=== PATIENT | male | born 1985 | race Caucasian/White ===

== ENCOUNTER 2019-09-24 10:43 | Inpatient (IN) | payer OTHER, SELFPAY ==
[2019-09-24] VITALS (14 sets, daily range): BP systolic 112–149; BP diastolic 74–115; PULSE 104–132; RESP 16–28; TEMP 36.3–36.7; O2SAT 92–100; BMI 42.5; BMI 42.6; BMI 49.5
--- NOTE | 2019-09-24 11:02 | EKG12_ITS ---
Test Reason : DIZZINESS Blood Pressure : / mmHG Vent. Rate : 119 BPM Atrial Rate : 119 BPM P-R Int : 138 ms QRS Dur : 088 ms QT Int : 306 ms P-R-T Axes : 050 010 050 degrees QTc Int : 430 ms Sinus tachycardia Otherwise normal ECG Confirmed by BASILIO BARRETT ([id number]), makeup editor SUZAN HORNER ([id number]) on 09/27/2019 11:27:46 AM Referred By: Yonis Wilson Confirmed By:BASILIO BARRETT
--- NOTE | 2019-09-24 11:16 | ED.DCSUM_ITS ---
- ER Visit Summary Date of Service: 09/24/19 Chief Complaint: Nausea, dry mouth, urinary frequency, and increased thirst History of Present Illness: The patient is a 34 M who presents with nausea, dry mouth, urinary frequency, and polydipsia that has been getting worse over the past week. Patient states he has been feeling lightheaded and weak. Patient states nothing makes it better or worse. Patient states his mouth feels very dry. Patient states he has been vomiting as well. Patient states he has been unable to keep anything down. Patient admits to subjective chills but denies any fevers. Patient denies any history of diabetes. Physical Examination: Vital signs are stable except for tachycardia of 132. Patient is afebrile. Patient is in no acute distress. Oral mucosa is pink and dry. Neck is supple. Trachea is midline. There is no JVD. Heart was regular and tachycardic. Lungs are clear and equal bilateral. Abdomen is soft and diffusely tender. There is no rebound or guarding noted. Cranial nerves II through XII are intact. There are no focal motor or sensory deficits noted. Skin is warm and dry. Test Results: CBC showed a hemoglobin of 18.8 and hematocrit of 5.0. Basic metabolic profile showed glucose of 44, anion gap of 19, CO2 of 13, sodium 133, BUN of 19 and creatinine of 1.8. Serum ketones were moderate. Emergency Department Course and Treatment: Patient was given IV fluids. Patient was started on insulin drip. Case was discussed with the hospitalist. Patient will be admitted to the intensive care unit. Patient understood and was agreeable with the plan. All questions were answered. Disposition: Admit to hospital Impression: 1. Diabetic ketoacidosis 2. New onset diabetes This note was generated with FXTripation software. It may contain incorrect words, spelling, and punctuation that were not noted in review of the chart prior to signing ED Disposition - Plan for ED Patient: Disposition: Acute Care Hospital [facility] Diagnosis: Diabetic ketoacidosis, Diabetes mellitus, new onset [facility] [[facility] Provider[facility] -
[2019-09-24 11:20] LABS: Absolute Lymphocyte Count 1.78 X10^3/uL (0.83-4.51); Absolute Neutrophil Count 6.9 X10^3/uL (2.0-7.7); Eosinophil# 0.18 X10^3/uL; Eosinophils% 1.8 % (0-5); Lymphocyte # 1.78 X10^3/ul (4.0); Lymphocyte % 17.9 % (19-41); Mean Corp Hgb Conc 34.2 g/dL (32-36); Mean Corpuscular Hgb 29.4 pg (27.0-32.0); Mean Corpuscular Volume 86.1 fL (80-94); Mean Platelet Vol. 10.9 fl (6.2-12.0); Monocyte# 0.99 X10^3/uL; Monocyte% 9.9 % (0-10); NRBC Flagged by Analyzer 0 % (0-5); Neutrophil # 6.85 X10^3/uL (2.7-7.7); Neutrophil % 68.8 % (47-70); Platelet Count 265 K/mm3 (150-450); RBC Distribution Width CV 12.8 % (11.6-14.6); RBC Distribution Width SD 39.8 fl (35.1-43.9); Red Blood Count 6.39 M/mm3 (4.6-6.2)
[2019-09-24] MEDS: 0.9% Normal Saline 1,000 ML 1000 ML IV (11:24)
[2019-09-24 11:25] LABS: Differential Indicated SCAN CRITERIA MET; Hemoglobin 18.8 g/dL (13.0-16.5)
[2019-09-24 11:36] LABS: Anion Gap 19 (5-15); BUN 19 mg/dL (7-18); BUN/Creat Ratio 10.6 RATIO (10-20); Calcium,Total 9.3 mg/dL (8.5-10.1); Chloride 101 mmol/L (98-107); EST Glomerular Filtration Rate 46 mL/min (>60); Est Glom Filt Rate - Afr Amer 56 mL/min (>60); Estimated Creatinine Clearance 70.99 ml/min; Glucose 484 mg/dL (74-106); Potassium 4.6 mmol/L (3.5-5.1); Sodium Level 133 mmol/L (136-145)
[2019-09-24 11:52] LABS: Platelet Estimate ADEQUATE (ADEQ); Red Cell Morphology NORM C+C NORMAL (NORM C&C)
--- NOTE | 2019-09-24 12:35 | PCM.HP.STD ---
History of Present Illness Date of Admission: 09/24/19 Chief Complaint: Dry mouth and urinary frequency with polydipsia The patient is a 34 year old M who is morbidly obese presents with nausea, dry mouth, urinary frequency, and polydipsia that has been worsening over the last week. He presented because he started feeling lightheaded and weak as well today. He has had some episodes of vomiting and has not been able to keep any food or liquids down at home. He has been having intermittent vomiting for the last 2 months, but it seems to have picked up more this last week. He has not had any fevers, or recent illnesses. He does not have any sick contacts at home. In the ER he was found to have a blood sugar of 484, with a gap of 19 and moderate acetone level. He also appears to be significantly dehydrated with a hemoglobin of 18.8. He was given a liter fluid and was started on an insulin drip. Past Medical History Allergies Fish Containing Products Allergy (Verified 09/24/19 10:48) Swelling Home Medications: Ambulatory Orders Medication Instructions Recorded NK 09/24/19 Surgical History: no surgical history Smoking Status: Never smoker Tobacco Use: Chew Alcohol: None Drugs: None - *Family History Maternal History Items: - - He is unaware of any medical history and his mother Paternal History Items: COPD Review of Systems Constitutional: Reports: Chills. Denies: Fever, Weight Change HEENT: Denies: Head Aches, Sinus Congestion, Sinus Drainage Cardiovascular: Denies: Chest Pain, Palpitations Respiratory: Denies: Cough, Shortness of breath at rest, Sputum production Gastrointestinal: Reports: Nausea, Vomiting. Denies: Abdominal Pain Genitourinary: Denies: Dysuria Musculoskeletal: Denies: Joint Pain, Joint Tenderness Skin: Denies: Rash, Wounds Neurological: Denies: Numbness, Tingling, Focal weakness Psychiatric: Denies: Anxiety, Depression Endocrine: Reports: Polydipsia, Polyuria Hematologic/ Lymphatic: Denies: Easy Bruising, Easy Bleeding VTE Information - Inpt Only VTE Present on Admission: No Patient Problems: Active and Suspected Problems Diabetic ketoacidosis (Acute) Diabetes mellitus, new onset (Acute) - Physical Exam Vitals/I&O's: Vital Signs Temp Pulse Resp BP Pulse Ox 97.3 F L 132 H 20 H 147/98 H 94 09/24/19 10:45 09/24/19 10:45 09/24/19 10:45 09/24/19 10:45 09/24/19 10:45 Oxygen Delivery Method Room Air Weight: 350 lb Body Mass Index (BMI) 42.5 General: Alert, Oriented x3, Cooperative, No apparent distress HEENT: Atraumatic, PERRLA, EOMI, Normocephalic Oral: Dry Mucosa Neck: Supple, No JVD Lungs: Clear to auscultation, Normal air movement, No rhonchi, No wheeze, No rales, Diminished Cardiovascular: Regular Rhythm, Normal S1, Normal S2, No murmurs, Tachycardic Abdomen: Soft, Non Tender, Non-Distended, No Hepato-splenomegaly, Obese Extremities: No edema, Capillary Refill Less than 3 Seconds Skin: No rashes, No breakdown Neurological: Neuro grossly intact, Sensory exam intact to light touch and pain Psych/Mental Status: Normal Affect, Appropriate Laboratory Results 09/24/19 11:15: WBC 10.0, RBC 6.39 H, Hgb 18.8 H*, Hct 55.0 H, MCV 86.1, MCH 29.4, MCHC 34.2, RDW Std Deviation 39.8, RDW Coeff of Greg 12.8, Plt Count 265, MPV 10.9, Immature Gran % (Auto) 0.600, Neut % (Auto) 68.8, Lymph % (Auto) 17.9 L, [place] % (Auto) 9.9, Eos % (Auto) 1.8, Baso % (Auto) 1.0, Absolute Neuts (auto) 6.9, Absolute Lymphs (auto) 1.78, Nucleated RBC % 0, Diff Path Review February, Platelet Estimate ADEQUATE, RBC Morphology NORM C+C 09/24/19 11:15: Sodium 133 L, Potassium 4.6, Chloride 101, Carbon Dioxide 13.0 L, Anion Gap 19 H, BUN 19 H, Creatinine 1.80 H, Estim Creat Clear Calc 70.99, Est GFR (MDRD) Af Amer 56 L, Est GFR (MDRD) Non-Af 46 L, BUN/Creatinine Ratio 10.6, Glucose 484 H*, Calcium 9.3 09/24/19 11:15: Acetone Level MODERATE H Current Medications Dextrose (D50w Syringe) 0 gm IV X1 PRN; Protocol PRN Reason: Hypoglycemia Protocol Insulin Human Lispro 100 unit/ (Sodium Chloride) 100 mls @ 8 mls/hr IV .[id number] [facility]; Protocol Assessment/Plan All Active Problems Diabetic ketoacidosis (Acute) Diabetes mellitus, new onset (Acute) 1. DKA with new onset diabetes/morbid obesity -He is never been diagnosed with diabetes before -[facility] is a [facility] -We will continue with the DKA protocol, and will rehydrate him as well as continue with the insulin drip -We will monitor potassium -We will check an A1c, and if it is very elevated will likely discharge on insulin -Discussed with him the role of lifestyle modifications and weight loss and controlling his diabetes 2. Bipolar -He takes risperidone, but is not sure of the dosage he is unsure of any other medications that he might be taking -He just refilled them 2 days ago and has not had them from us this entire month -Once we verify what medications he does take can restart while he is here. DVT: Ambulation Code Visit Inpatient E&M: 12766 Init Hosp L2
[2019-09-24 12:43] LABS: Bacteria 0 SEEN /hpf (None Seen); Mucous, Urine 0 SEEN /hpf (<or=2+); White Blood Cells 0 SEEN /hpf (0-5)
[2019-09-24 12:51] LABS: Color, Urine Yellow (Yellow); Glucose, Dipstick 1000 mg/dl (Normal); Leukocyte Esterase-Dipstick Negative /ul (Negative); Nitrite-Dipstick Negative (Negative); Occult Blood-Urine 150 /ul (Negative); Protein-Dipstick 100 mg/dl (Negative); Specific Gravity, Urine 1.025 (1.002-1.030); Urine Bilirubin Dipstick Negative (Negative); Urine Clarity Clear (Clear); Urine Urobilinogen Normal (Normal)
[2019-09-24 12:57] LABS: Ketone-Dipstick 150 mg/dl (Negative)
[2019-09-24 12:59] LABS: Fine Granular Cast- Urine 0-5 SEEN /lpf (0-5); Red Blood Cells-Urine 0-5 SEEN /hpf (0-5); Squamous Epithelial Cells - UA 0-5 SEEN /hpf (0-5)
[2019-09-24 13:06] LABS: Bedside Glucose 485 mg/dL (70-110)
[2019-09-24 13:38] LABS: Hemoglobin A1c 10.4 % (4.2-6.3)
[2019-09-24] MEDS: 0.9% Normal Saline 1,000 ML 500 ML IV (13:58)
[2019-09-24 15:11] LABS: Bedside Glucose 413 mg/dL (70-110)
[2019-09-24 15:27] LABS: Anion Gap 18 (5-15); BUN 17 mg/dL (7-18); BUN/Creat Ratio 11.1 RATIO (10-20); Calcium,Total 8.4 mg/dL (8.5-10.1); Chloride 109 mmol/L (98-107); Creatinine, Serum 1.53 mg/dL (0.70-1.30); EST Glomerular Filtration Rate 56 mL/min (>60); Est Glom Filt Rate - Afr Amer 67 mL/min (>60); Estimated Creatinine Clearance 83.52 ml/min; Glucose 333 mg/dL (74-106); Potassium 3.9 mmol/L (3.5-5.1); Sodium Level 137 mmol/L (136-145)
[2019-09-24 15:56] LABS: Bedside Glucose 351 mg/dL (70-110)
[2019-09-24] MEDS: 0.9% Normal Saline 1,000 ML 250 ML IV (16:00)
[2019-09-24 16:05] LABS: Bedside Glucose 296 mg/dL (70-110)
[2019-09-24 17:00] LABS: Bedside Glucose 326 mg/dL (70-110)
[2019-09-24 18:05] LABS: Bedside Glucose 307 mg/dL (70-110)
[2019-09-24 18:51] LABS: Bedside Glucose 275 mg/dL (70-110)
[2019-09-24 19:15] LABS: Anion Gap 15 (5-15); BUN 17 mg/dL (7-18); BUN/Creat Ratio 10.2 RATIO (10-20); Calcium,Total 8.4 mg/dL (8.5-10.1); Chloride 110 mmol/L (98-107); Creatinine, Serum 1.66 mg/dL (0.70-1.30); EST Glomerular Filtration Rate 51 mL/min (>60); Est Glom Filt Rate - Afr Amer 61 mL/min (>60); Estimated Creatinine Clearance 76.98 ml/min; Glucose 280 mg/dL (74-106); Sodium Level 139 mmol/L (136-145)
[2019-09-24] MEDS: Dext 5%-0.45% NS 1,000 ML 150 ML IV (20:15)
[2019-09-24 21:10] LABS: Bedside Glucose 245 mg/dL (70-110)
[2019-09-24 21:10] LABS: Bedside Glucose 248 mg/dL (70-110)
[2019-09-24 23:48] LABS: Anion Gap 12 (5-15); BUN 16 mg/dL (7-18); BUN/Creat Ratio 10.4 RATIO (10-20); Calcium,Total 8.2 mg/dL (8.5-10.1); Chloride 110 mmol/L (98-107); Creatinine, Serum 1.54 mg/dL (0.70-1.30); EST Glomerular Filtration Rate 55 mL/min (>60); Est Glom Filt Rate - Afr Amer 67 mL/min (>60); Estimated Creatinine Clearance 82.98 ml/min; Glucose 278 mg/dL (74-106); Potassium 4.1 mmol/L (3.5-5.1); Sodium Level 138 mmol/L (136-145)
[2019-09-25] VITALS (15 sets, daily range): BP systolic 117–154; BP diastolic 54–98; PULSE 99–121; RESP 10–27; TEMP 36.2–36.9; O2SAT 92–100
[2019-09-25 00:01] LABS: Bedside Glucose 278 mg/dL (70-110)
[2019-09-25 00:01] LABS: Bedside Glucose 266 mg/dL (70-110)
[2019-09-25 00:05] LABS: Bedside Glucose 243 mg/dL (70-110)
[2019-09-25] MEDS: Insulin Lispro 100 UNIT/ML INSULN.PEN SC ×5 (02:45→22:05)
[2019-09-25 02:51] LABS: Bedside Glucose 252 mg/dL (70-110)
[2019-09-25 02:51] LABS: Bedside Glucose 283 mg/dL (70-110)
[2019-09-25 02:51] LABS: Bedside Glucose 323 mg/dL (70-110)
--- NOTE | 2019-09-25 03:04 | CPS ---
Pt. put on 2L NC for sleep-time therapeutic purposes
[2019-09-25 04:59] LABS: Absolute Lymphocyte Count 1.87 X10^3/uL (0.83-4.51); Absolute Neutrophil Count 4.6 X10^3/uL (2.0-7.7); Basophil# 0.08 X10^3/uL; Eosinophil# 0.37 X10^3/uL; Eosinophils% 4.6 % (0-5); Hematocrit 47.2 % (40-54); Lymphocyte # 1.87 X10^3/ul (4.0); Lymphocyte % 23.3 % (19-41); Mean Corp Hgb Conc 33.9 g/dL (32-36); Mean Corpuscular Hgb 29.3 pg (27.0-32.0); Mean Corpuscular Volume 86.4 fL (80-94); Mean Platelet Vol. 10.9 fl (6.2-12.0); Monocyte# 1.02 X10^3/uL; Monocyte% 12.7 % (0-10); NRBC Flagged by Analyzer 0 % (0-5); Neutrophil # 4.62 X10^3/uL (2.7-7.7); Neutrophil % 57.7 % (47-70); Platelet Count 233 K/mm3 (150-450); RBC Distribution Width CV 13.2 % (11.6-14.6); RBC Distribution Width SD 40.9 fl (35.1-43.9); Red Blood Count 5.46 M/mm3 (4.6-6.2)
[2019-09-25 05:12] LABS: Anion Gap 15 (5-15); BUN 15 mg/dL (7-18); BUN/Creat Ratio 10.1 RATIO (10-20); Calcium,Total 8.1 mg/dL (8.5-10.1); Chloride 106 mmol/L (98-107); Creatinine, Serum 1.49 mg/dL (0.70-1.30); EST Glomerular Filtration Rate 57 mL/min (>60); Est Glom Filt Rate - Afr Amer 69 mL/min (>60); Estimated Creatinine Clearance 85.76 ml/min; Glucose 318 mg/dL (74-106); Potassium 3.8 mmol/L (3.5-5.1); Sodium Level 137 mmol/L (136-145)
[2019-09-25] MEDS: Insulin Lispro 100 UNIT/ML INSULN.PEN 10 UNIT SC (08:24)
[2019-09-25 08:31] LABS: Bedside Glucose 319 mg/dL (70-110)
--- NOTE | 2019-09-25 08:38 | PN_ITS ---
Patient Problems: Active and Suspected Problems Diabetic ketoacidosis (Acute) Diabetes mellitus, new onset (Acute) Subjective: Feeling much better. No issues overnight Vitals/I&O's: Vital Signs Temp Pulse Resp BP Pulse Ox 97.8 F 107 H 24 H 154/83 H 98 09/25/19 07:00 09/25/19 08:00 09/25/19 08:00 09/25/19 08:00 09/25/19 08:00 Oxygen Flow Rate (L/min) 2 Oxygen Delivery Method Room Air Weight: 417 lb 1.833 oz Body Mass Index (BMI) 49.5 Finger Stick Blood Glucose 283 Intake and Output for Last 24 Hours 09/23/19 09/24/19 09/25/19 23:59 23:59 23:59 Intake Total 3046.09 / 3614.59 1240.94 / 1240.94 Output Total 400 / 400 Balance 2646.09 / 3214.59 1240.94 / 1240.94 General: Alert, Oriented x3, Cooperative, No apparent distress HEENT: Atraumatic, PERRLA, EOMI, Normocephalic Oral: Moist Mucosa Neck: Supple, No JVD Lungs: Clear to auscultation, Normal air movement, No rhonchi, No wheeze, No rales, Diminished Cardiovascular: Regular Rhythm, Normal S1, Normal S2, No murmurs, Tachycardic Abdomen: Soft, Non Tender, Non-Distended, No Hepato-splenomegaly, Obese Extremities: No edema, Capillary Refill Less than 3 Seconds Skin: No rashes, No breakdown Neurological: Neuro grossly intact, Sensory exam intact to light touch and pain Psych/Mental Status: Normal Affect, Appropriate Laboratory Results 09/24/19 11:15: WBC 10.0, RBC 6.39 H, Hgb 18.8 H*, Hct 55.0 H, MCV 86.1, MCH 29.4, MCHC 34.2, RDW Std Deviation 39.8, RDW Coeff of Greg 12.8, Plt Count 265, MPV 10.9, Immature Gran % (Auto) 0.600, Neut % (Auto) 68.8, Lymph % (Auto) 17.9 L, [place] % (Auto) 9.9, Eos % (Auto) 1.8, Baso % (Auto) 1.0, Absolute Neuts (auto) 6.9, Absolute Lymphs (auto) 1.78, Nucleated RBC % 0, Diff Path Review February, Platelet Estimate ADEQUATE, RBC Morphology NORM C+C 09/24/19 11:15: Sodium 133 L, Potassium 4.6, Chloride 101, Carbon Dioxide 13.0 L , Anion Gap 19 H, BUN 19 H, Creatinine 1.80 H, Estim Creat Clear Calc 70.99, Est GFR (MDRD) Af Amer 56 L, Est GFR (MDRD) Non-Af 46 L, BUN/Creatinine Ratio 10.6, Glucose 484 H*, Calcium 9.3 09/24/19 11:15: Acetone Level MODERATE H 09/24/19 11:15: Hemoglobin A1c 10.4 H 09/24/19 12:30: Urine Color Yellow, Urine Clarity Clear, Urine pH 5.0, Ur Specific [place] 1.025, Urine Protein 100 H, Urine Glucose (UA) 1000 H, Urine Ketones 150 H, Urine Occult Blood 150 H, Urine Nitrite Negative, Urine Bilirubin Negative, Urine Urobilinogen Normal, Ur Leukocyte Esterase Negative, Urine RBC 0-5 SEEN, Urine WBC 0 SEEN, Ur Squamous Epith Cells 0-5 SEEN, Urine Bacteria 0 SEEN, Fine Granular Casts 0-5 SEEN, Urine Mucus 0 SEEN 09/24/19 12:54: POC Glucose 485 H* 09/24/19 13:51: POC Glucose 413 H 09/24/19 15:02: POC Glucose 351 H 09/24/19 15:05: Sodium 137, Potassium 3.9, Chloride 109 H, Carbon Dioxide 10.0 L , Anion Gap 18 H, BUN 17, Creatinine 1.53 H, Estim Creat Clear Calc 83.52, Est GFR (MDRD) Af Amer 67, Est GFR (MDRD) Non-Af 56 L, BUN/Creatinine Ratio 11.1, Glucose 333 H, Calcium 8.4 L 09/24/19 15:55: POC Glucose 296 H 09/24/19 16:53: POC Glucose 326 H 09/24/19 17:53: POC Glucose 307 H 09/24/19 18:43: POC Glucose 275 H 09/24/19 18:45: Sodium 139, Potassium 4.0, Chloride 110 H, Carbon Dioxide 14.0 L , Anion Gap 15, BUN 17, Creatinine 1.66 H, Estim Creat Clear Calc 76.98, Est GFR (MDRD) Af Amer 61, Est GFR (MDRD) Non-Af 51 L, BUN/Creatinine Ratio 10.2, Glucose 280 H, Calcium 8.4 L 09/24/19 19:52: POC Glucose 248 H 09/24/19 20:59: POC Glucose 245 H 09/24/19 21:59: POC Glucose 278 H 09/24/19 23:00: Sodium 138, Potassium 4.1, Chloride 110 H, Carbon Dioxide 16.0 L , Anion Gap 12, BUN 16, Creatinine 1.54 H, Estim Creat Clear Calc 82.98, Est GFR (MDRD) Af Amer 67, Est GFR (MDRD) Non-Af 55 L, BUN/Creatinine Ratio 10.4, Glucose 278 H, Calcium 8.2 L 09/24/19 23:00: POC Glucose 266 H 09/24/19 23:59: POC Glucose 243 H 09/25/19 01:19: POC Glucose 252 H 09/25/19 02:04: POC Glucose 323 H 09/25/19 02:41: POC Glucose 283 H 09/25/19 04:50: Sodium 137, Potassium 3.8, Chloride 106, Carbon Dioxide 16.0 L, Anion Gap 15, BUN 15, Creatinine 1.49 H, Estim Creat Clear Calc 85.76, Est GFR (MDRD) Af Amer 69, Est GFR (MDRD) Non-Af 57 L, BUN/Creatinine Ratio 10.1, Glucose 318 H, Calcium 8.1 L 09/25/19 04:50: WBC 8.0, RBC 5.46, Hgb 16.0, Hct 47.2, MCV 86.4, MCH 29.3, MCHC 33.9, RDW Std Deviation 40.9, RDW Coeff of Greg 13.2, Plt Count 233, MPV 10.9, Immature Gran % (Auto) 0.700, Neut % (Auto) 57.7, Lymph % (Auto) 23.3, [place] % (Auto) 12.7 H, Eos % (Auto) 4.6, Baso % (Auto) 1.0, Absolute Neuts (auto) 4.6, Absolute Lymphs (auto) 1.87, Nucleated RBC % 0 09/25/19 07:47: POC Glucose 319 H Current Medications Dextrose (D50w Syringe) 0 gm IV X1 PRN; Protocol PRN Reason: Hypoglycemia Glucagon () 1 mg IM .X1 PRN PRN Reason: Hypoglycemia Insulin Glargine (Lantus (Bkc)) 30 units SC QHS [facility] Last Admin: 09/25/19 00:43 Dose: 30 u Documented by: Insulin Human Lispro (Humalog Kwikpen (Bk)) 0 unit SC ACHS & 3AM [facility]; Protocol Last Admin: 09/25/19 08:23 Dose: 6 u Documented by: Insulin Human Lispro (Humalog Kwikpen (Bkc)) 10 unit SC TIDAC [facility] Last Admin: 09/25/19 08:24 Dose: 10 units Documented by: Sodium Chloride () 10 - 40 ml IV UD PRN PRN Reason: SALINE FLUSH STROKE Vital Signs/Narrative: Vital Signs Temp Pulse Resp BP Pulse Ox 09/25/19 08:00 107 H 24 H 154/83 H 98 09/25/19 07:00 97.8 F 120 H 27 H 154/83 H 100 09/25/19 06:00 108 H 10 L 139/81 H 99 09/25/19 05:00 99 22 H 143/90 H 100 Medical Necessity - Tobacco Use Smoking Status: Never smoker Tobacco Use: Chew Assessment/Plan All Active Problems Diabetic ketoacidosis (Acute) Diabetes mellitus, new onset (Acute) 1. DKA with new onset diabetes/morbid obesity -He is never been diagnosed with diabetes before -He is a and [facility] -Gap is closed, c/w IVF -We will monitor potassium -A1c is 10, will continue with lantus 30U HS, Novolog TID WM, and SSI -Discussed with him the role of lifestyle modifications and weight loss and controlling his diabetes 2. Bipolar -He takes risperidone, but is not sure of the dosage he is unsure of any other medications that he might be taking -He just refilled them 2 days ago and has not had them from us this entire month -Once we verify what medications he does take can restart while he is here. DVT: Ambulation Code Visit Inpatient E&M: 91094 Subs Hosp L2
--- NOTE | 2019-09-25 10:59 | CASEMGMT ---
JESUS met w/pt and girlfriend in room in regard to prior level of care and discharge plan. PCP: none, [facility], has appt on October 03 Specialists: Sees counselor at [facility] Insurance: None, will be [facility] the [facility] Pharmacy: Will use [facility] LW/POA: JESUS assisted pt with completing LW/POA, pt put girlfriend Jennifer Grossman as POA. JESUS made copies, gave pt originals and copies and placed copies on chart. LNOK: Pt lives with girlfriend, has a mom in [place] Prior level of function/Living arrangements: Pt lives with girlfrientimoteo Rodriguez in a trailer with a few steps in. Pt is independent with all ADL's, has a license but does not drive, has no car. They use taxi vouchers to get places. [facility] for appt. Pt uses no DME, no HHC. Pt states is a disabled . JESUS spoke w/pt in regard to prior level of care, discharge plan. Pt did speak w/financial department about HCAP, did not speak w/them about Medicaid. JESUS gave pt multiple resources including [facility] [employer], [facility] assist, [facility] Mc[facility]on, Dental clinic information, 211, food bank information, hospital transport, [facility] Resource list, and prescription assistance programs. Pt goes to [facility] for bipolar and is prescribed medications for bipolar through them. He is satisfied with their services and does not want to make any changes in regard to mental health providers at this time. JESUS was able to use hospital assist for pt's medications, they will bring medications to the room. JESUS did explain to pt he can only use this service once per year, pt states understanding. JESUS let pt know they will bring the medications to the room. [facility], but is going on October 03 to get re-established. He will be able to follow up w/them for his diabetic medications after this. Pt's girlfriend has a glucometer pt can use until he goes to the [facility]. Girlfriend showed SW the meter, she has well over 50 strips and multiple lancets. JESUS did let pt know that [facility] has inexpensive meters as well if needed. Plan: Pt home tomorrow and using hospital assist for meds at discharge, pt [facility]. TOPHER Alcala
[2019-09-25] MEDS: 0.9% Normal Saline 1,000 ML 125 ML IV ×2 (11:13→18:13)
[2019-09-25] MEDS: Insulin Lispro 100 UNIT/ML INSULN.PEN 15 UNIT SC ×2 (12:20→16:30)
[2019-09-25 12:35] LABS: Bedside Glucose 476 mg/dL (70-110)
[2019-09-25 14:33] LABS: Pathologist Review Reviewed
[2019-09-25 16:41] LABS: Bedside Glucose 392 mg/dL (70-110)
[2019-09-25 22:21] LABS: Bedside Glucose 330 mg/dL (70-110)
[2019-09-26] VITALS (10 sets, daily range): BP systolic 116–133; BP diastolic 65–95; PULSE 82–138; RESP 16–24; TEMP 36.4–36.9; O2SAT 94–96
--- NOTE | 2019-09-26 02:05 | NURSING ---
Addendum entered by Salma Santoyo 09/26/19 02:06: EVENT OCCURRED @ 0035 Original Note: PT REQUESTED PAIN MEDICATION FOR UPPER-MID ABD PAIN. ORDER OBTAINED FROM DR UMANZOR AND WHEN THIS RN RETURNED TO PT'S ROOM, HE WAS SLEEPING. NOT AWOKEN FOR PAIN MEDICATION.
[2019-09-26] MEDS: 0.9% Normal Saline 1,000 ML 125 ML IV ×3 (02:13→18:39)
[2019-09-26] MEDS: Insulin Lispro 100 UNIT/ML INSULN.PEN SC ×5 (03:09→21:51)
[2019-09-26 03:31] LABS: Bedside Glucose 284 mg/dL (70-110)
[2019-09-26 06:19] LABS: Absolute Lymphocyte Count 1.54 X10^3/uL (0.83-4.51); Basophil# 0.06 X10^3/uL; Basophil% 1.1 % (0-1); Eosinophil# 0.24 X10^3/uL; Eosinophils% 4.3 % (0-5); Hematocrit 44.4 % (40-54); Hemoglobin 14.8 g/dL (13.0-16.5); Lymphocyte # 1.54 X10^3/ul (4.0); Lymphocyte % 27.5 % (19-41); Mean Corp Hgb Conc 33.3 g/dL (32-36); Mean Corpuscular Hgb 28.7 pg (27.0-32.0); Mean Corpuscular Volume 86.2 fL (80-94); Mean Platelet Vol. 11.4 fl (6.2-12.0); Monocyte# 0.72 X10^3/uL; Monocyte% 12.8 % (0-10); NRBC Flagged by Analyzer 0 % (0-5); Neutrophil # 3.01 X10^3/uL (2.7-7.7); Neutrophil % 53.6 % (47-70); Platelet Count 183 K/mm3 (150-450); RBC Distribution Width CV 13.2 % (11.6-14.6); RBC Distribution Width SD 41.1 fl (35.1-43.9); Red Blood Count 5.15 M/mm3 (4.6-6.2); White Blood Count 5.6 K/mm3 (4.4-11.0)
[2019-09-26 06:38] LABS: Anion Gap 13 (5-15); BUN 13 mg/dL (7-18); BUN/Creat Ratio 10.3 RATIO (10-20); Calcium,Total 8.1 mg/dL (8.5-10.1); Chloride 111 mmol/L (98-107); Creatinine, Serum 1.26 mg/dL (0.70-1.30); EST Glomerular Filtration Rate 70 mL/min (>60); Est Glom Filt Rate - Afr Amer 84 mL/min (>60); Estimated Creatinine Clearance 101.42 ml/min; Glucose 279 mg/dL (74-106); Potassium 3.8 mmol/L (3.5-5.1); Sodium Level 140 mmol/L (136-145)
[2019-09-26] MEDS: Insulin Lispro 100 UNIT/ML INSULN.PEN 15 UNIT SC (08:09)
--- NOTE | 2019-09-26 11:19 | PCM.PN.HOSP ---
Patient Problems: Active and Suspected Problems Diabetic ketoacidosis (Acute) Diabetes mellitus, new onset (Acute) Reason for Visit: c/O mild abdominal pain, generalized. Morbid obesity. patient blood sugar is still very high about 280-300 mg/dl. Pt felt not comfortable about taking insulin as new diagnosis of DM-1 WITH DKA Vitals/I&O's: Vital Signs Temp Pulse Resp BP Pulse Ox 97.5 F L 107 H 16 121/75 H 94 09/26/19 07:57 09/26/19 07:57 09/26/19 07:57 09/26/19 07:57 09/26/19 07:57 Oxygen Flow Rate (L/min) 2 Oxygen Delivery Method Room Air Weight: 420 lb 6.744 oz Body Mass Index (BMI) 49.5 Finger Stick Blood Glucose 283 Intake and Output for Last 24 Hours 09/24/19 09/25/19 09/26/19 23:59 23:59 23:59 Intake Total 3046.09 / 3614.59 2115.94 / 4515.94 4700 / 4700 Output Total 400 / 400 1600 / 1600 Balance 2646.09 / 3214.59 2115.94 / 2915.94 3100 / 3100 General: Alert, Oriented x3, Cooperative HEENT: Atraumatic, PERRLA, EOMI, Normocephalic Neck: Supple, No JVD, Negative Carotid Bruits Lungs: Clear to auscultation, No rhonchi, No wheeze, No rales, Diminished Cardiovascular: Regular rate, Regular Rhythm, Normal S1, Normal S2, No murmurs Abdomen: Bowel Sounds Present, Soft, Non Tender, Non-Distended Extremities: No edema, Capillary Refill Less than 3 Seconds Skin: No rashes, No breakdown Musculoskeletal: No Tenderness to Palpation of Joints or Extremities Neurological: Cranial nerves II-XII grossly intact, Deep Tendon Reflexes 2+/4 and Symmetrical, Neuro grossly intact Psych/Mental Status: Normal Affect, Appropriate Laboratory Results 09/24/19 11:15: Diff Path Review Reviewed 09/25/19 12:09: POC Glucose 476 H* 09/25/19 16:27: POC Glucose 392 H 09/25/19 22:01: POC Glucose 330 H 09/26/19 03:06: POC Glucose 284 H 09/26/19 05:32: WBC 5.6, RBC 5.15, Hgb 14.8, Hct 44.4, MCV 86.2, MCH 28.7, MCHC 33.3, RDW Std Deviation 41.1, RDW Coeff of Greg 13.2, Plt Count 183, MPV 11.4, Immature Gran % (Auto) 0.700, Neut % (Auto) 53.6, Lymph % (Auto) 27.5, [place] % (Auto) 12.8 H, Eos % (Auto) 4.3, Baso % (Auto) 1.1 H, Absolute Neuts (auto) 3.0, Absolute Lymphs (auto) 1.54, Nucleated RBC % 0 09/26/19 05:32: Sodium 140, Potassium 3.8, Chloride 111 H, Carbon Dioxide 16.0 L, Anion Gap 13, BUN 13, Creatinine 1.26, Estim Creat Clear Calc 101.42, Est GFR (MDRD) Af Amer 84, Est GFR (MDRD) Non-Af 70, BUN/Creatinine Ratio 10.3, Glucose 279 H, Calcium 8.1 L Current Medications Acetaminophen (Tylenol) 650 mg PO Q6H PRN PRN PRN Reason: Pain Score 1-10/10 Dextrose (D50w Syringe) 0 gm IV X1 PRN; Protocol PRN Reason: Hypoglycemia Glucagon () 1 mg IM .X1 PRN PRN Reason: Hypoglycemia Sodium Chloride () 1,000 mls @ 125 mls/hr IV .Q8H [facility] Last Admin: 09/26/19 10:48 Dose: 125 mls/hr Documented by: Insulin Human Lispro (Humalog Kwikpen (Bkc)) 0 unit SC ACHS & 3AM [facility]; Protocol Last Admin: 09/26/19 08:09 Dose: 6 u Documented by: Sodium Chloride () 10 - 40 ml IV UD PRN PRN Reason: SALINE FLUSH STROKE Vital Signs/Narrative: Vital Signs Temp Pulse Resp BP Pulse Ox 09/26/19 07:57 97.5 F L 107 H 16 121/75 H 94 Medical Necessity - Tobacco Use Smoking Status: Never smoker Tobacco Use: Chew Assessment/Plan All Active Problems Diabetic ketoacidosis (Acute) Diabetes mellitus, new onset (Acute) 34-year-old gentleman with history of morbid obesity was admitted with DKA with new diagnosis of diabetes mellitus type 1. 1. Diabetes mellitus type 1, new onset with DKA: DKA is resolved. A1c 10. Patient is still has high blood sugar, 284-300 today and yesterday was 300 to 400 mg percent. Lantus dose is increased to 40 units subcu at bedtime with extra dose of 20 units now. Humalog insulin increased to 25 units subcu units 3 times daily AC. Patient was educated about insulin he might need follow-up with production control analyst for evaluation of insulin pump for better glucose control. 2. Possible sleep apnea: Patient is morbid obese and has a snoring. He did not had sleep study done. Needs outpatient evaluation. 3. Bipolar disorder: Patient states he was on risperidone but not sure about the dosages. 4. DVT prophylaxis: Encourage ambulation. Since patient is morbid obese with BMI 51 he is moderate risk. Started on Lovenox 40 mg subcu daily Code Visit Inpatient E&M: 72904 Subs Hosp L2
--- NOTE | 2019-09-26 11:27 | PCM.DC ---
- Discharge Diagnoses Current Active Problems: Current Active and Chronic Problems Diabetic ketoacidosis (Acute) Diabetes mellitus, new onset (Acute) You will use the following diet at home:: Calorie/Carbohydrate Controlled (specify 1200, 1400, etc) - 1600 ADA diet Your food should be the consistency of: Regular Discharge Activity: May Not Drive - for about 1 week Call your doctor if you observe: Fever of 101 or Higher, Numbness or Tingling, Inability to urinate, Inability to have a bowel movement, Using more than one pad per hour, Shortness of breath, Dizziness, Fainting spells, Swelling in the ankles, Chest pain, Increased palpitations (irregular heartbeat) Additional Instructions: Need sleep study as outpatient. Possible sleep apnea Allergies/Adverse Reactions: Allergies Fish Containing Products Allergy (Verified 09/24/19 10:48) Swelling Medications to take at Discharge Insulin Lispro [Humalog KwikPen] 20 unit SUBCUT TIDCM #1 insuln.pen 09/26/19 Insulin Glargine [Lantus SoloStar Pen] 30 units SC QHS pen 09/27/19 Insulin Glargine [Lantus SoloStar Pen] 50 units SUBCUT DAILY #1 pen 09/27/19 Insulin Lispro [Humalog KwikPen] 35 unit SUBCUT TIDAC #1 insuln.pen 09/27/19 Insulin Lispro [Humalog KwikPen] See Protocol SC ACHS & 3AM insuln.pen 09/27/19 The following prescriptions were given: Insulin Lispro [Humalog KwikPen] 20 unit SUBCUT TIDCM #1 insuln.pen Prescription Printed Insulin Lispro [Humalog KwikPen] 35 unit SUBCUT TIDAC #1 insuln.pen Transmission Status: Pending to [facility] Insulin Glargine [Lantus SoloStar Pen] 50 units SUBCUT DAILY #1 pen Transmission Status: Pending to [facility] Orders to be completed after discharge: Glucometer Location: None Selected [facility] [[facility] Provider] - Please follow up with your Primary Care Physician in: in 2 weeks Test Results: Test results from this visit will be discussed in further detail at your follow-up appointment, if applicable. Please Follow Up With: Jaspreet Jennings MD When: Type 1 DM with DKA
[2019-09-26 12:21] LABS: Bedside Glucose 283 mg/dL (70-110)
[2019-09-26] MEDS: Enoxaparin 40 MG/0.4 ML Syringe SC (12:33)
[2019-09-26 12:36] LABS: Bedside Glucose 346 mg/dL (70-110)
[2019-09-26 16:41] LABS: Bedside Glucose 395 mg/dL (70-110)
[2019-09-26] MEDS: Insulin Lispro 100 UNIT/ML INSULN.PEN 25 UNIT SC (17:08)
[2019-09-26 22:05] LABS: Bedside Glucose 267 mg/dL (70-110)
[2019-09-27] MEDS: Insulin Lispro 100 UNIT/ML INSULN.PEN SC ×3 (02:14→11:10)
[2019-09-27] MEDS: 0.9% Normal Saline 1,000 ML 125 ML IV (02:15)
[2019-09-27 02:19] VITALS: BP 139/72; PULSE 117; RESP 18; TEMP 36.3; O2SAT 92
[2019-09-27 02:21] LABS: Bedside Glucose 350 mg/dL (70-110)
[2019-09-27 04:53] VITALS: PULSE 121
[2019-09-27 07:05] VITALS: PULSE 111
[2019-09-27 08:25] VITALS: BP 128/83; PULSE 108; RESP 17; TEMP 36.8; O2SAT 95
[2019-09-27] MEDS: Insulin Lispro 100 UNIT/ML INSULN.PEN 25 UNIT SC (08:26)
[2019-09-27 08:36] LABS: Bedside Glucose 292 mg/dL (70-110)
--- NOTE | 2019-09-27 10:30 | CASEMGMT ---
Patient's discharge insulins are the same, but the amount to take has changed. RN aware and corrected prescription labels. Dorina GALLOWAY CONSTRUCTION EQUIPMENT MECHANIC HELPER
--- NOTE | 2019-09-27 11:00 | DCINST_ITS ---
- Discharge Diagnoses Current Active Problems: Current Active and Chronic Problems Diabetic ketoacidosis (Acute) Diabetes mellitus, new onset (Acute) You will use the following diet at home:: Calorie/Carbohydrate Controlled (specify 1200, 1400, etc) - 1600 ADA diet Discharge Activity: May Not Drive Call your doctor if you observe: Fever of 101 or Higher, Numbness or Tingling, Change in Color, Inability to urinate, Inability to have a bowel movement, Shortness of breath, Dizziness, Fainting spells, Swelling in the ankles, Chest pain, Prolonged hiccoughing, Increased palpitations (irregular heartbeat), Uncontrolled pain Additional Instructions: Outpatient sleep study for patient is snoring and possible obstructive sleep apnea Allergies/Adverse Reactions: Allergies Fish Containing Products Allergy (Verified 09/24/19 10:48) Swelling Medications to take at Discharge Insulin Glargine [Lantus SoloStar Pen] 30 units SC QHS pen 09/27/19 Insulin Glargine [Lantus SoloStar Pen] 50 units SUBCUT DAILY #1 pen 09/27/19 Insulin Lispro [Humalog KwikPen] 35 unit SUBCUT TIDAC #1 insuln.pen 09/27/19 Insulin Lispro [Humalog KwikPen] See Protocol SC ACHS & 3AM insuln.pen 09/27/19 The following prescriptions were given: Insulin Lispro [Humalog KwikPen] 35 unit SUBCUT TIDAC #1 insuln.pen Transmission Status: Pending to [facility] Insulin Glargine [Lantus SoloStar Pen] 50 units SUBCUT DAILY #1 pen Transmission Status: Pending to [facility] Orders to be completed after discharge: Glucometer Location: None Selected [facility] Physician[facility] [Primary Care Provider] - Please follow up with your Primary Care Physician in: in 2 week Test Results: Test results from this visit will be discussed in further detail at your follow- up appointment, if applicable. Please Follow Up With: Jaspreet Jennings MD When: for type 1 DM with DKA
--- NOTE | 2019-09-27 11:03 | PCM.DC.SUM ---
Discharge Date and Diagnosis Date of Admission: 09/24/19 Date of Discharge: 09/27/19 - Primary Discharge Diagnosis Active and Suspected Problems Diabetic ketoacidosis (Acute) Diabetes mellitus, new onset (Acute); type I Hospital Course and Treatment Summary of Care Provided: The patient is a 34-year-old gentleman with history of morbid obesity was admitted with DKA with new diagnosis of diabetes mellitus type 1. 1. Diabetes mellitus type 1, new onset with DKA: DKA is resolved. A1c 10. Patient is still has high blood sugar, 284-300 today and yesterday was 300 to 400 mg percent. Lantus dose is increased to 40 units subcu at bedtime with extra dose of 20 units now. Humalog insulin increased to 25 units subcu units 3 times daily AC. 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 09/27: Patient Humalog was increased to 35 units subcutaneous 3 times daily. Lantus changed to 50 units subcutaneous daily and 30 units at night. Needs further endocrinology follow-up to adjust the dose of insulin. I think patient will be better served on insulin pump. 2. Possible sleep apnea: Patient is morbid obese and has a snoring. He did not had sleep study done. Needs outpatient evaluation. 09/27: Patient was educated about weight loss and follow-up for sleep study. 3. Bipolar disorder: Patient states he was on risperidone but not sure about the dosages. 4. DVT prophylaxis: Encourage ambulation. Since patient is morbid obese with BMI 51 he is moderate risk. Started on Lovenox 40 mg subcu daily Discharge medication reconciliation done. Discharge follow-up instructions completed. Discharge process discussed with the patient and his and all questions were answered to patient's satisfaction. Total time spent, exact 35 minutes on discharge meds reconciliation, examination, review of imaging and blood test and discussion with the patient on follow-up instructions. Subjective: Seen and examined. Patient is confident about insulin subcutaneous injection. Patient wants to go home. - Physical Exam Vitals/I&O's: Vital Signs Temp Pulse Resp BP Pulse Ox 98.3 F 108 H 17 128/83 H 95 09/27/19 08:25 09/27/19 08:25 09/27/19 08:25 09/27/19 08:25 09/27/19 08:25 Oxygen Flow Rate (L/min) 2 Oxygen Delivery Method Room Air Weight: 420 lb 6.744 oz Body Mass Index (BMI) 49.5 Finger Stick Blood Glucose 283 Intake and Output for Last 24 Hours 09/25/19 09/26/19 09/27/19 23:59 23:59 23:59 Intake Total 2115.94 / 4515.94 6540 / 6540 1902.08 / 190.08 Output Total 1600 / 1600 Balance 2115.94 / 2915.94 4940 / 4940 1902.08 / 190.08 General: Alert, Oriented x3, Cooperative HEENT: Atraumatic, PERRLA, EOMI, Normocephalic Neck: Supple, No JVD, Negative Carotid Bruits Lungs: Clear to auscultation, Normal air movement Cardiovascular: Regular rate, No murmurs Abdomen: Bowel Sounds Present, Soft, Non Tender, Non-Distended Extremities: No edema, Capillary Refill Less than 3 Seconds Skin: No rashes, No breakdown Musculoskeletal: No Tenderness to Palpation of Joints or Extremities Neurological: Cranial nerves II-XII grossly intact, Deep Tendon Reflexes 2+/4 and Symmetrical, Neuro grossly intact Psych/Mental Status: Normal Affect, Appropriate Laboratory Results 09/26/19 07:54: POC Glucose 283 H 09/26/19 12:18: POC Glucose 346 H 09/26/19 16:36: POC Glucose 395 H 09/26/19 21:51: POC Glucose 267 H 09/27/19 02:13: POC Glucose 350 H 09/27/19 08:24: POC Glucose 292 H Current Medications Acetaminophen (Tylenol) 650 mg PO Q6H PRN PRN PRN Reason: Pain Score 1-10/10 Dextrose (D50w Syringe) 0 gm IV X1 PRN; Protocol PRN Reason: Hypoglycemia Enoxaparin Sodium (Lovenox) 40 mg SC DAILY [facility] Last Admin: 09/27/19 08:26 Dose: Not Given Documented by: Glucagon () 1 mg IM .X1 PRN PRN Reason: Hypoglycemia Sodium Chloride () 1,000 mls @ 125 mls/hr IV .Q8H [facility] Last Infusion: 09/27/19 09:52 Dose: Infused Documented by: Insulin Glargine (Lantus (Bkc)) 50 units SC QHS [facility] Last Admin: 09/26/19 21:52 Dose: 50 u Documented by: Insulin Glargine (Lantus (Bkc)) 30 units SC DAILY [facility] Last Admin: 09/27/19 09:48 Dose: 30 units Documented by: Insulin Human Lispro (Humalog Kwikpen (Bk)) 0 unit SC ACHS & 3AM GERARDO; Protocol Last Admin: 09/27/19 08:25 Dose: 6 u Documented by: Insulin Human Lispro (Humalog Kwikpen (Bk)) 35 unit SC TIDAC [facility] Sodium Chloride () 10 - 40 ml IV UD PRN PRN Reason: SALINE FLUSH Discharge Activity: May Not Drive Call your doctor if you observe: Fever of 101 or Higher, Numbness or Tingling, Change in Color, Inability to urinate, Inability to have a bowel movement, Shortness of breath, Dizziness, Fainting spells, Swelling in the ankles, Chest pain, Prolonged hiccoughing, Increased palpitations (irregular heartbeat), Uncontrolled pain Home Medications: Medications to take at Discharge Insulin Glargine [Lantus SoloStar Pen] 30 units SUBCUT QHS pen 09/27/19 Insulin Glargine [Lantus SoloStar Pen] 50 units SUBCUT DAILY #1 pen 09/27/19 Insulin Lispro [Humalog KwikPen] 35 unit SUBCUT TIDAC #1 insuln.pen 09/27/19 Insulin Lispro [Humalog KwikPen] See Protocol SUBCUT ACHS & 3AM insuln.pen 09/27/19 Following Prescrptions Were Given to Patient: Insulin Lispro [Humalog KwikPen] 35 unit SUBCUT TIDAC #1 insuln.pen Transmission Status: Received by [facility] Insulin Glargine [Lantus SoloStar Pen] 50 units SUBCUT DAILY #1 pen Transmission Status: Received by [facility] Other Amb Orders: Glucometer Location: None Selected [facility] Care Physician[place] [facility] [Primary Care Provider] - Please follow up with your Primary Care Physician in: in 2 week Please Follow Up With: Jaspreet Jennings MD When: for type 1 DM with DKA Medical Necessity - Tobacco Use Smoking Status: Never smoker Tobacco Use: Chew Meaningful Use Info Meaningful Use Diagnoses (Choose all that apply): None applicable Code Visit Inpatient E&M: 55490 Disch Hosp
[2019-09-27] MEDS: Insulin Lispro 100 UNIT/ML INSULN.PEN 35 UNIT SC (11:11)
[2019-09-27 11:20] LABS: Bedside Glucose 232 mg/dL (70-110)
== END 2019-09-27 12:15 | disposition home or self-care (01) | DRG 638 ==
LOC: ED 12:15 → ICU 09-25 07:06 → PCU 09-25 08:57
PROVIDERS: Admitting Provider Family Medicine; Emergency Provider Emergency Medicine; Referring Provider Family Medicine; Visit Provider Internal Medicine
DX: E10.10 Type 1 diabetes mellitus with ketoacidosis without coma (principal); Z68.42 Body mass index [BMI] 45.0-49.9, adult; E66.01 Morbid (severe) obesity due to excess calories; F31.9 Bipolar disorder, unspecified
CPT/HCPCS: 36415; 80048; 81001; 82009; 82962; 83036; 85025; 93005; 97161; 97165; 97802; 99285; J7030; A4216; J7799

== ENCOUNTER 2020-10-08 17:56 | Emergency (ER) | payer OTHER, SELFPAY ==
[2020-03-17 13:22] VITALS: BMI 42.5
[2020-10-08 17:57] VITALS: BP 158/115; PULSE 116; PULSE 121; RESP 20; TEMP 36.4; O2SAT 96; BMI 46.5
--- NOTE | 2020-10-08 18:17 | ED.VIS.GEN ---
History of Present Illness Chief Complaint: Dental Informant: Patient Narrative: 35-year-old male with history of insulin-dependent diabetes presents with 1 week of right-sided dental pain. He states that the whole right side of his lower mouth. He denies any trauma. He denies any difficulty breathing or swallowing. Patient is not had a fever, chills. Patient has no facial swelling. He states he tried to call the dentist and they told him it would be 4 weeks to get into the office. Past Medical History - Allergies and Home Meds Allergies/Adverse Reactions: Allergies Fish Containing Products Allergy (Verified 09/24/19 10:48) Swelling Primary Care Physician: [place] [Primary Care Provider] - Prior records reviewed: Yes Past Medical History: - - Insulin-dependent diabetes Surgical History: no surgical history Lives: Spouse/ Significant Other Smoking Status: Never smoker Alcohol: None Drugs: None - Family History Maternal Family History: Reports: - - He is unaware of any medical history and his mother Paternal Family History: Reports: COPD Review of Systems General: Denies: Chills, Fever, Sweats Eyes: Denies: Visual changes - bilaterally, Diplopia ENT: Reports: - - Right mandibular dental pain. Denies: Rhinorrhea, Sore throat Cardiovascular: Denies: Chest pain, Palpitations Respiratory: Denies: Dyspnea, Cough, Dyspnea on exertion Gastrointestinal: Denies: Abdominal pain, Nausea, Vomiting, Diarrhea, Melena, Hematochezia Musculoskeletal: Denies: Back pain, Extremity Pain Skin: Denies: Rash, Wounds Neurological: Denies: Headache, Weakness, Numbness Physical Exam Vital Signs/Narrative: Vital Signs Temp Pulse Resp BP Pulse Ox 10/08/20 17:57 97.5 F L 116 H 20 H 158/115 H 96 General: Obese, No Acute Distress Head: Normocephalic, Atraumatic Eyes: Perrl, EOMI ENT: Moist mucous membranes, - - Dental caries involving the right mandibular teeth approximately 27-32. No facial swelling. There is percussion tenderness over these teeth. No sublingual swelling.. Negative for: No rhinorrhea Neck: Supple, Nontender, No lymphadenopathy Cardiovascular: Regular rate, Regular rhythm Respiratory: No distress, CTA bilaterally Abdomen: Soft, Nontender Skin: Normal color, No rash Neurological: Alert, Oriented x3 Psychological: Normal affect, Normal Mood Diagnostic/Tx/Re-eval - Medical Decision Making Patient presents with dental pain and has found to have multiple dental caries on the right mandibular teeth. He has made appointment for dentist but he is weeks away. I will place him on Augmentin for home. Patient was also given #6 Percocet for home as well as Naprosyn. He is to use the Percocet for breakthrough pain. Impression: 1. Dental caries 2. Dental infection ED Disposition - Plan for ED Patient: Disposition: Home or Assisted Living Instructions: ED Dental Cavity [place]errals[place] [facility] [Primary Care Provider] -
[2020-10-08] MEDS: oxyCODONE 5 MG Tablet PO (18:26)
[2020-10-08] MEDS: Amox/Clavulanate 875 MG Tablet PO (18:26)
== END 2020-10-08 18:39 | disposition home or self-care (01) ==
LOC: ED 18:33
PROVIDERS: Emergency Provider Student in an Organized Health Care Education/Training Program
DX: K02.9 Dental caries, unspecified (principal); K04.7 Periapical abscess without sinus; E10.9 Type 1 diabetes mellitus without complications; Z79.4 Long term (current) use of insulin
CPT/HCPCS: 99283

== ENCOUNTER 2020-10-29 13:51 | Emergency (ER) | payer OTHER, SELFPAY ==
[2020-10-29 13:52] VITALS: BP 160/100; PULSE 114; RESP 16; TEMP 36.3; O2SAT 97; BMI 43.7
--- NOTE | 2020-10-29 14:00 | ED.DCSUM_ITS ---
History of Present Illness Chief Complaint: Dental Informant: Patient Onset: Weeks - 3 Context: Gradual Onset Timing: Continuous Quality: throbbing Location: right mandibular teeth Current Severity: Severe Maximum Severity: Severe Worsened by: eating Relieved by: - - oxycodone, but not NSAIDs Associated Symptoms: - - no new sx except now feels like it is involving his right maxillary 2nd molar Narrative: Patient was seen here 3 weeks ago for similar dental pain, he was supposed to receive an antibiotic but did not. He only had prescriptions for oxycodone and Naprosyn at the pharmacy when he got there. He has tried to get into see denisse arguello, but has not been able to get an appointment this month. He states pain is getting worse. Denies any fevers, bleeding, swelling, foul taste or drainage but now has an additional tooth that feels affected. - Past Medical History (1) Insulin dependent diabetes mellitus Status: Chronic Past Medical History - Allergies and Home Meds Allergies/Adverse Reactions: Allergies Fish Containing Products Allergy (Verified 10/29/20 13:57) Swelling Primary Care Physician: [place] [Primary Care Provider] - Surgical History: no surgical history Smoking Status: Never smoker - Family History Maternal Family History: Reports: - - He is unaware of any medical history and his mother Paternal Family History: Reports: COPD Review of Systems General: Denies: Chills, Fever, Sweats Eyes: Denies: Visual changes - bilaterally, Diplopia ENT: Reports: - - Dental pain. See HPI.. Denies: Rhinorrhea, Sore throat Cardiovascular: Denies: Chest pain, Palpitations Respiratory: Denies: Dyspnea, Cough Gastrointestinal: Denies: Nausea, Vomiting Musculoskeletal: Denies: Swelling, Extremity Pain Skin: Denies: Rash, Wounds Physical Exam Vital Signs/Narrative: Vital Signs Temp Pulse Resp BP Pulse Ox 10/29/20 13:52 97.3 F L 114 H 16 160/100 H 97 Inital Vital Signs reviewed: Yes General: Well nourished, Well developed, Obese, - - Well-appearing no distress Head: Normocephalic, Atraumatic ENT: Moist mucous membranes, No rhinorrhea Mouth/Throat: Tenderness on tooth percussion - Throughout right mandibular m olars, cuspids and bicuspids with evidence of gingival inflammation nearby, no abscess. Also tooth #2 appears to have a small carry and is tender to percussion. No abscess. No trismus.. Negative for: Dental abscess, Trismus Neck: Supple, No lymphadenopathy, Nontender. Negative for: Anterior submandibular lymphadenopathy, Posterior submandibular lymphadenopathy Skin: Normal color, No rash, No Trauma Neurological: Alert, Oriented x3, Cranial nerves II-XII grossly intact, Normal Strength, Normal Sensation, - - Normal speech Psychological: Normal affect, Normal Mood Diagnostic/Tx/Re-eval - Medical Decision Making I did check an OARRS report, the prescription for oxycodone that he received here 3 weeks ago was the only 1 in his prior to your report. The physician did apparently intend to prescribe Augmentin, but it does not appear that it was prescribed. I think amoxicillin is adequate, gave him an initial dose here, prescription for that and a little more Percocet given his pain. He was also given a dental resource list. ED Disposition - Plan for ED Patient: Disposition: Home or Assisted Living Diagnosis: Infected dental caries, Odontalgia Instructions: ED Dental Pain Prescriptions: Amoxicillin 500 mg PO TID #30 tab Transmission Status: Pending to [facility] Oxycodone HCl/Acetaminophen [Percocet 5/325] 1 tablet PO Q6H PRN PRN 2 Days #10 tablet PRN Reason: Pain Transmission Status: Sent to [facility] [place]errals: [facility] [Primary Care Provider] - Dentist,Your [STAFF PHYSICIAN] - As soon as possible (see attached dental resource list as needed)
[2020-10-29] MEDS: AMOXICILLIN 500 MG CAPSULE PO (14:14)
== END 2020-10-29 14:16 | disposition home or self-care (01) ==
LOC: ED 14:15
PROVIDERS: Emergency Provider Emergency Medicine
DX: K02.9 Dental caries, unspecified (principal); K04.7 Periapical abscess without sinus; E10.9 Type 1 diabetes mellitus without complications; Z79.4 Long term (current) use of insulin
CPT/HCPCS: 99283

== ENCOUNTER 2020-10-31 04:56 | Emergency (ER) | payer OTHER, SELFPAY ==
[2020-10-31 04:58] VITALS: BP 170/114; PULSE 129; RESP 18; TEMP 36.6; O2SAT 99; BMI 47.7
[2020-10-31 05:01] VITALS: BP 170/114; PULSE 129; RESP 18; TEMP 36.6; O2SAT 99
--- NOTE | 2020-10-31 05:13 | ED.VIS.GEN ---
History of Present Illness Chief Complaint: Dental Informant: Patient Narrative: Presents with right-sided dental pain. He was seen here couple days ago and given amoxicillin and Percocet for which he has been taking. He continues to have persistent pain worse tonight. Difficult sleeping. He had difficulty eating secondary to pain in this area therefore he just been drinking water. Blood sugars have been under control as he is not been eating much per patient. He has an appointment with the dentist on Monday. - Past Medical History (1) Diabetes mellitus, new onset Status: Acute (2) Diabetic ketoacidosis Status: Acute (3) Insulin dependent diabetes mellitus Status: Chronic Past Medical History - Allergies and Home Meds Allergies/Adverse Reactions: Allergies Fish Containing Products Allergy (Verified 10/31/20 05:00) Swelling Primary Care Physician: [place] [Primary Care Provider] - Prior records reviewed: Yes Past Medical History: - - Reviewed Surgical History: no surgical history Smoking Status: Never smoker Alcohol: None Drugs: None - Family History Maternal Family History: Reports: - - He is unaware of any medical history and his mother Paternal Family History: Reports: COPD Review of Systems General: Denies: Chills, Fever, Sweats Eyes: Denies: Visual changes - bilaterally, Diplopia ENT: Reports: - - See HPI. Denies: Rhinorrhea, Sore throat Cardiovascular: Denies: Chest pain, Palpitations Respiratory: Denies: Dyspnea, Cough, Dyspnea on exertion Gastrointestinal: Denies: Abdominal pain, Nausea, Vomiting, Diarrhea, Melena, Hematochezia Genitourinary: Denies: Dysuria, Hematuria, Frequency Musculoskeletal: Denies: Back pain, Extremity Pain Skin: Denies: Rash, Wounds Neurological: Denies: Headache, Weakness, Numbness Physical Exam Vital Signs/Narrative: Vital Signs Temp Pulse Resp BP Pulse Ox 10/31/20 05:01 98 F 129 H 18 170/114 H 99 10/31/20 04:58 98 F 129 H 18 170/114 H 99 General: Well nourished, Well developed, No Acute Distress Head: Normocephalic, Atraumatic Eyes: Perrl, EOMI ENT: Moist mucous membranes, No rhinorrhea, - - Tenderness right upper molars with widespread dental decay. No abscess to the gumline Neck: Supple, Nontender Cardiovascular: Regular rate, Regular rhythm, No murmurs Respiratory: No distress, CTA bilaterally, Chest nontender Abdomen: Soft, Nontender, Nondistended, Normal bowel sounds Back: Nontender, Normal Inspection Extremities: Nontender, No edema Skin: Normal color, No rash Neurological: Alert, Oriented x3, Cranial nerves II-XII grossly intact, Normal Strength, Normal Sensation Psychological: Normal affect, Normal Mood Diagnostic/Tx/Re-eval - Medical Decision Making Give injection of Toradol. He will continue to rest and ice take his antibiotics and has Percocet at home. He will add ibuprofen. I do not feel he needs further work-up. There is no facial swelling. There is no swelling to the gumline. There is no evidence of ANUG or Ludewig's angina. ED Disposition - Plan for ED Patient: Disposition: Home or Assisted Living Diagnosis: Dental abscess Instructions: Dental Abscess Additional Instructions: Follow with your dentist
[2020-10-31] MEDS: Ketorolac 30 MG/ML Syringe IM (05:33)
== END 2020-10-31 05:46 | disposition home or self-care (01) ==
LOC: ED 05:31
PROVIDERS: Emergency Provider Emergency Medicine
DX: K04.7 Periapical abscess without sinus (principal); E10.9 Type 1 diabetes mellitus without complications; K08.89 Other specified disorders of teeth and supporting structures; Z79.4 Long term (current) use of insulin
CPT/HCPCS: 96372; 99282; 99284

== ENCOUNTER 2020-10-31 15:44 | Emergency (ER) | payer OTHER, SELFPAY ==
[2020-10-31 04:58] VITALS: BMI 47.7
[2020-10-31 15:48] VITALS: BP 156/117; PULSE 124; RESP 16; TEMP 35.7; O2SAT 95; BMI 45.0
--- NOTE | 2020-10-31 16:39 | ED.VIS.GEN ---
History of Present Illness Chief Complaint: Dental Informant: Patient Narrative: Patient presents to the emergency department with dental pain. This is his fourth visit in less than a month and a second today for the same. He states that he is a diabetic and has been vomiting. He has been drinking plenty of fluids but states that food will not stay down. He is on antibiotics and has pain medicine. He states he is worried that the bacteria from his tooth is now in his bloodstream. He denies any rashes or facial swelling. He states the cold water feels best. He states he does chew tobacco but has not been using tobacco since his pain started. He states he has an appointment with dentistry on Monday. He took his blood sugar today was 320. Capacity - Capacity Assessment Tool Can the patient make a choice & communicate that choice?: Yes Can the patient understand benefits, risks and alternatives?: Yes Can the patient make a logical, rational choice?: Yes Is the choice the patient makes consistent w/ their values?: Unable to Determine Is there an impending, emergent risk to the patient?: Unable to Determine Does the patient have an Advance Directive?: Yes Is there a Surrogate Available?: No i.e. HCPOA: No i.e. close relative (spouse, child, parent, sibling)?: No - Past Medical History (1) Pain, dental Status: Acute (2) Diabetic ketoacidosis Status: Acute (3) Insulin dependent diabetes mellitus Status: Chronic Past Medical History - Allergies and Home Meds Allergies/Adverse Reactions: Allergies Fish Containing Products Allergy (Verified 10/31/20 15:47) Swelling Primary Care Physician[place] [Primary Care Provider] - As soon as possible Surgical History: no surgical history Smoking Status: Never smoker Drugs: None - Family History Maternal Family History: Reports: - - He is unaware of any medical history and his mother Paternal Family History: Reports: COPD Review of Systems General: Reports: Sweats. Denies: Chills, Fever Eyes: Denies: Visual changes - bilaterally, Diplopia ENT: Reports: - - Dental pain top right multiple teeth. Denies: Rhinorrhea, Sore throat Cardiovascular: Denies: Chest pain, Palpitations Respiratory: Denies: Dyspnea, Cough, Dyspnea on exertion Gastrointestinal: Reports: Nausea, Vomiting. Denies: Abdominal pain, Diarrhea, Melena, Hematochezia Genitourinary: Denies: Dysuria, Hematuria, Frequency Musculoskeletal: Denies: Back pain, Extremity Pain Skin: Denies: Rash, Wounds Neurological: Denies: Headache, Weakness, Numbness Physical Exam Vital Signs/Narrative: Vital Signs Temp Pulse Resp BP Pulse Ox 10/31/20 15:48 96.2 F L 124 H 16 156/117 H 95 Inital Vital Signs reviewed: Yes General: Well nourished, Well developed, Obese, No Acute Distress Head: Normocephalic, Atraumatic Eyes: Perrl, EOMI ENT: Moist mucous membranes, No rhinorrhea, - - I do not appreciate any focal gum swelling or obvious dental abscess. There is no trismus. Neck: Supple, Nontender Cardiovascular: Regular rate, No murmurs, Tachycardia Respiratory: No distress, CTA bilaterally, Chest nontender Abdomen: Soft, Nontender, Nondistended, Normal bowel sounds Back: Nontender, Normal Inspection Extremities: Nontender, No edema Skin: Normal color, No rash Neurological: Alert, Oriented x3, Cranial nerves II-XII grossly intact, Normal Strength, Normal Sensation Psychological: Normal affect, Normal Mood Diagnostic/Tx/Re-eval - Medical Decision Making The patient is a diabetic tachycardic and vomiting recommended we check a metabolic panel to ensure he is not in DKA. Pain medicine and anxiety medications were ordered. Patient decided that he did not want to wait for this work-up and chose to sign out AMA. It appears that he has the capacity to make this decision. I expressed my concern that his choice is not in the best interest of his health. ED Disposition - Plan for ED Patient: Disposition: Against Medical Advice Diagnosis: Pain, dental, Insulin dependent diabetes mellitus Instructions: ED Dental Cavity Prescriptions: Ondansetron [Zofran Odt] 4 mg PO Q6H PRN PRN #10 tab PRN Reason: Nausea Prescription Printed [place]errals: [facility] [Primary Care Provider] - As soon as possible Additional Instructions: Follow-up with dentist as soon as possible
== END 2020-10-31 16:47 | disposition left against medical advice (07) ==
PROVIDERS: Emergency Provider Emergency Medicine
DX: K08.89 Other specified disorders of teeth and supporting structures (principal); E10.9 Type 1 diabetes mellitus without complications; Z79.4 Long term (current) use of insulin
CPT/HCPCS: 99282

== ENCOUNTER 2021-04-30 11:52 | Emergency (ER) | payer OTHER, MEDICAID, SELFPAY ==
[2021-04-30 11:54] VITALS: BP 155/126; PULSE 132; RESP 22; TEMP 35.8; O2SAT 99; BMI 53.4
--- NOTE | 2021-04-30 12:09 | ED.VIS.DENTA ---
HPI History of Present Illness Chief Complaint: Dental Informant: patient Narrative Narrative: Patient is a 35-year-old male with a past medical history of diabetes who presents to the emergency department for dental pain on the left upper side. He states it has been getting worse over the past 3 days. He does have cold sensitivity with it. He does follow with a dentist but they could not get him in until mid April. He has been taking [id number] pain medicine which has not been giving significant relief. The pain does come and go. He currently rates as a mild ache. He has required dental extractions before. The pain does go up to his left ear. Denies any discharge from the ear. No ringing or loss of hearing. Denies any headache or neck pain. No sore throat or issue with swallowing. No chest pain or shortness of breath. No cough. PFSH [facility] Medical History (Updated 04/30/21 @ 12:[address] Pascual Fulton DO) Diabetes Home Medications insulin glargine 50 units SUBCUT DAILY #1 pen 09/27/19 [Rx Last Taken Unknown] insulin lispro 35 unit SUBCUT TIDAC #1 insuln.pen 09/27/19 [Rx Last Taken Unknown] naproxen 500 mg PO BID PRN #20 tab 10/08/20 [Rx Last Taken Unknown] oxycodone-acetaminophen 1 ea PO 4X/DAY PRN PRN #6 tab 10/08/20 [Rx Last Taken Unknown] amoxicillin 500 mg PO TID #30 tab 10/29/20 [Rx Last Taken Unknown] ondansetron 4 mg PO Q6H PRN PRN #10 tab 10/31/20 [Rx Last Taken Unknown] penicillin V potassium 500 mg PO 4X/DAY 7 Days #28 tab 04/30/21 [Rx Last Taken Unknown] Allergy/AdvReac Type Severity Reaction Status Date / Time Fish Containing Products Allergy Swelling Verified 04/30/21 11:53 Social History Smoking Status: Never smoker ROS ROS ED Constitutional Constitutional ED: Denies chills or fever(s) Eyes Eyes: Denies change in vision ENT ENT ED: Denies ear pain, epistaxis, rhinorrhea or sore throat Cardiovascular Cardiovascular: Denies chest pain or palpitations Respiratory/Chest Respiratory/Chest: Denies cough, dyspnea or dyspnea on exertion Gastrointestinal Gastrointestinal: Denies abdominal pain, nausea or vomiting Musculoskeletal Musculoskeletal: Denies back pain or neck pain Integumentary Denies rash Neurologic Neurologic: Denies dizziness, headache(s) or weakness EXAM Physical Exam Const Vital Signs: 04/30/21 11:54 Temperature 96.5 F L Temperature Source Temporal Pulse Rate 132 H Respiratory Rate 22 H Blood Pressure 155/126 H Blood Pressure Mean 135 Pulse Ox 99 Oxygen Delivery Method Room Air Positive well nourished and well developed General Appearance ED: well developed and NAD HEENT Reports normocephalic, head/scalp atraumatic and moist mucous membranes HEENT Narrative: Normal tympanic membranes. Uvula midline. No obvious abscess present. There are dental caries present. No significant facial swelling. Eyes PERRL and EOMs intact bilaterally Neck no lymphadenopathy and supple General: Negative for tenderness Resp normal respiratory effort and clear to auscultation bilaterally Auscultation: Negative for rales, rhonchi or wheezes Cardio regular rhythm and no murmurs Cardio Narrative: Borderline tachycardic Extremity normal to inspection Neuro CN's II-XII intact bilaterally and no sensory deficits noted Sensorium / Orientation: alert Motor Exam: strength 5/5 throughout Psych mental status grossly normal Skin no rashes or lesions noted MDM MDM MDM Narrative Medical decision making narrative: Patient presents to the ED for dental pain. Patient does have multiple dental caries on physical exam. No obvious drainable abscess. On arrival to the emerge department he is tachycardic on arrival but his heart rate did return closer to normal on my examination. He otherwise is in no acute distress. Will prescribe him an antibiotic for suspected dental abscess. He is going to follow-up with his dentist as soon as possible. Return precautions are reviewed with him. He understands and is agreeable with plan. Discharged home in stable condition. All questions were answered. Discharge Plan Triage Chief Complaint: Dental ED Provider: Pascual Fulton Dx/Rx/DC Orders Clinical Impression: Pain, dental Instructions: ED Dental Abscess Prescriptions: New penicillin V potassium 500 mg tablet 500 mg PO 4X/DAY 7 Days Qty: 28 RF: 0 No Action insulin lispro 100 UNIT/ML insulin pen 35 unit subcut TIDAC Qty: 1 RF: 0 insulin glargine 100 UNITS/ML insulin pen 50 units subcut DAILY Qty: 1 RF: 0 oxycodone-acetaminophen 1 EACH tablet 1 ea PO 4X/DAY PRN PRN (Reason: pain) Qty: 6 RF: 0 naproxen 500 MG tablet 500 mg PO BID PRN Qty: 20 RF: 0 amoxicillin 500 MG tablet 500 mg PO TID Qty: 30 RF: 0 ondansetron 4 MG tablet 4 mg PO Q6H PRN PRN (Reason: Nausea) Qty: 10 RF: 0 [facility] [facility] [facility] [[facility] Provider[facility] - Activity Restrictions/Additional Instructions: Please follow-up with your dentist as soon as possible. Disposition Disposition: Home, Self Care Discharge Date/Time: 04/30/21 12:19
== END 2021-04-30 12:19 | disposition home or self-care (01) ==
LOC: ED 12:16
PROVIDERS: Emergency Provider Emergency Medicine
DX: K08.89 Other specified disorders of teeth and supporting structures (principal)
CPT/HCPCS: 99282

== ENCOUNTER 2021-05-15 19:53 | Emergency (ER) | payer OTHER, MEDICAID, SELFPAY ==
[2021-05-15 19:53] VITALS: BP 206/156; PULSE 115; RESP 20; TEMP 36.3; O2SAT 94; BMI 55.8
[2021-05-15] MEDS: oxyCODONE 5 MG Tablet PO (20:26)
[2021-05-15] MEDS: Clindamycin HCl 150 MG Capsule 450 MG PO (20:26)
--- NOTE | 2021-05-15 20:27 | ED.VIS.DENTA ---
HPI History of Present Illness Chief Complaint: Dental Narrative Narrative: Patient presenting with left-sided dental pain. Patient had a filling placed and have by a volunteer dentist at [facility]. This was tooth #4. Patient states he has had increased pain in this area. His dentist did call him in amoxicillin 500 mg p.o. 3 times daily however this has not been helping. He complains of more pain. He was told to take Tylenol and ibuprofen for pain. Patient states he is not able to sleep secondary to pain. He denies any drainage from the tooth or foul odor. He denies any trauma to the tooth. [facility] Medical History Diabetes Home Medications insulin glargine 50 units SUBCUT DAILY #1 pen 09/27/19 [Rx Last Taken Unknown] insulin lispro 35 unit SUBCUT TIDAC #1 insuln.pen 09/27/19 [Rx Last Taken Unknown] naproxen 500 mg PO BID PRN #20 tab 10/08/20 [Rx Last Taken Unknown] oxycodone-acetaminophen 1 ea PO 4X/DAY PRN PRN #6 tab 10/08/20 [Rx Last Taken Unknown] amoxicillin 500 mg PO TID #30 tab 10/29/20 [Rx Last Taken Unknown] ondansetron 4 mg PO Q6H PRN PRN #10 tab 10/31/20 [Rx Last Taken Unknown] clindamycin HCl 450 mg PO 4X/DAY 10 Days #120 capsule 05/15/21 [Rx Last Taken Unknown] oxycodone-acetaminophen [Endocet] 1 tab PO Q6H PRN 3 Days #12 tab 05/15/21 [Rx Last Taken Unknown] Allergy/AdvReac Type Severity Reaction Status Date / Time Fish Containing Products Allergy Swelling Verified 05/15/21 19:53 Social History Smoking Status: Never smoker ROS ROS ED Constitutional Constitutional ED: Denies fever(s) or subjective ENT ENT ED: Reports other Details: Left dental pain ; Denies rhinorrhea or sore throat Cardiovascular Cardiovascular: Denies chest pain or palpitations Respiratory/Chest Respiratory/Chest: Denies cough or dyspnea Gastrointestinal Gastrointestinal: Denies abdominal pain, nausea or vomiting Genitourinary Genitourinary ED: Denies dysuria or hematuria Musculoskeletal Musculoskeletal: Denies arthralgias or myalgias Integumentary Denies Abrasions or rash Neurologic Neurologic: Reports headache(s); Denies paresthesias Psychiatric Psychiatric: Denies anxiety or depression Endocrine Endocrinology: Denies polydipsia or polyuria EXAM Physical Exam Const Vital Signs: 05/15/21 19:53 Temperature 97.3 F L Temperature Source Temporal Pulse Rate 115 H Respiratory Rate 20 H Blood Pressure 206/156 H Blood Pressure Mean 172 Pulse Ox 94 Oxygen Delivery Method Room Air Positive obese General Appearance ED: NAD Nutritional Appearance: obese HEENT HEENT Narrative: Tooth #4 has a filling on it on the top. There is no drainage. There is percussion tenderness. There are no gingival changes. The glucose is normal. Tongue is not swollen. No sublingual edema. Negative for trauma Eyes PERRL and EOMs intact bilaterally Neck no lymphadenopathy and supple Resp normal respiratory effort and clear to auscultation bilaterally Cardio regular rate and regular rhythm Neuro oriented x3 Sensorium / Orientation: alert Psych mental status grossly normal Skin no rashes or lesions noted MDM MDM MDM Narrative Medical decision making narrative: Patient presenting with dental pain. He states that he has not been able to sleep secondary to the pain. He denies any problems with breathing or swallowing. Is not had fever or chills. He has been on amoxicillin and has not had improvement. [id number] medications are not helping his pain. Patient given an oxycodone in the ED. I will switch him to clindamycin. He is given a short prescription for Percocet for home until he can follow-up with his dentist on Monday. Patient to return precautions. Impression: 1. Recent dental filling 2. Dental infection Discharge Plan Triage Chief Complaint: Dental ED Provider: Yousif Gama Dx/Rx/DC Orders Instructions: ED Dental Cavity Prescriptions: New oxycodone-acetaminophen [Endocet] 5-325 mg tablet 1 tab PO Q6H PRN (Reason: pain) 3 Days Qty: 12 RF: 0 clindamycin HCl 150 mg capsule 450 mg PO 4X/DAY 10 Days Qty: 120 RF: 0 No Action insulin lispro 100 UNIT/ML insulin pen 35 unit subcut TIDAC Qty: 1 RF: 0 insulin glargine 100 UNITS/ML insulin pen 50 units subcut DAILY Qty: 1 RF: 0 oxycodone-acetaminophen 1 EACH tablet 1 ea PO 4X/DAY PRN PRN (Reason: pain) Qty: 6 RF: 0 naproxen 500 MG tablet 500 mg PO BID PRN Qty: 20 RF: 0 amoxicillin 500 MG tablet 500 mg PO TID Qty: 30 RF: 0 ondansetron 4 MG tablet 4 mg PO Q6H PRN PRN (Reason: Nausea) Qty: 10 RF: 0 [facility] [facility] [facility] [[place] - Disposition Disposition: Home, Self Care Discharge Date/Time: 05/15/21 20:28
== END 2021-05-15 20:28 | disposition home or self-care (01) ==
PROVIDERS: Emergency Provider Student in an Organized Health Care Education/Training Program
DX: K04.7 Periapical abscess without sinus (principal); E66.9 Obesity, unspecified; E11.9 Type 2 diabetes mellitus without complications; Z79.4 Long term (current) use of insulin; Z79.899 Other long term (current) drug therapy
CPT/HCPCS: 99283

== ENCOUNTER 2021-05-27 16:20 | Emergency (ER) | payer OTHER, MEDICAID, SELFPAY ==
[2021-05-27 16:21] VITALS: BP 173/136; PULSE 122; RESP 24; TEMP 35.8; O2SAT 93; BMI 55.5
--- NOTE | 2021-05-27 18:04 | EDS_ITS ---
HPI History of Present Illness Chief Complaint: Dental Informant: patient Narrative Narrative: Patient is a 36-year-old male with history of insulin-dependent diabetes mellitus presenting with left lower dental pain. Patient states he had a tooth pulled yesterday at [facility]. Since then he has had significant pain. He states he only has Motrin at home to take for pain. He states the pain is sharp and feels like it is rating to his ear. He denies any difficulty swallowing. Yesterday his face was swollen however that has gone down and is not as severe today. Patient denies any fever or chills. He notes he is not currently on any antibiotics. Patient called the clinic today who told him it was normal to have this kind of pain and did not offer any further advice. This is why he came to the emergency room. [facility] Medical History Diabetes Home Medications insulin glargine 50 units SUBCUT DAILY #1 pen 09/27/19 [Rx Last Taken Unknown] insulin lispro 35 unit SUBCUT TIDAC #1 insuln.pen 09/27/19 [Rx Last Taken Unknown] naproxen 500 mg PO BID PRN #20 tab 10/08/20 [Rx Last Taken Unknown] oxycodone-acetaminophen 1 ea PO 4X/DAY PRN PRN #6 tab 10/08/20 [Rx Last Taken Unknown] amoxicillin 500 mg PO TID #30 tab 10/29/20 [Rx Last Taken Unknown] ondansetron 4 mg PO Q6H PRN PRN #10 tab 10/31/20 [Rx Last Taken Unknown] clindamycin HCl 450 mg PO 4X/DAY 10 Days #120 capsule 05/15/21 [Rx Last Taken Unknown] oxycodone-acetaminophen [Endocet] 1 tab PO Q6H PRN 3 Days #12 tab 05/15/21 [Rx Last Taken Unknown] oxycodone-acetaminophen [Endocet] 1 tab PO Q6H PRN 2 Days #10 tab 05/27/21 [Rx Last Taken Unknown] Allergy/AdvReac Type Severity Reaction Status Date / Time Fish Containing Products Allergy Swelling Verified 05/15/21 19:53 Social History Smoking Status: Never smoker ROS ROS ED Constitutional Constitutional ED: Denies chills or fever(s) Eyes Eyes: Denies blurry vision or change in vision ENT ENT ED: Reports ear pain left and other Details: Left lower dental pain from recent extraction, left-sided facial swelling Cardiovascular Cardiovascular: Denies chest pain or palpitations Respiratory/Chest Respiratory/Chest: Denies cough or dyspnea Gastrointestinal Gastrointestinal: Denies abdominal pain or vomiting Musculoskeletal Musculoskeletal: Denies arthralgias or myalgias Integumentary Denies rash Neurologic Neurologic: Reports headache(s); Denies weakness EXAM Physical Exam Const Vital Signs: 05/27/21 16:21 Temperature 96.5 F L Temperature Source Temporal Pulse Rate 122 H Respiratory Rate 24 H Blood Pressure 173/136 H Blood Pressure Mean 148 Pulse Ox 93 Oxygen Delivery Method Room Air Positive well nourished, well developed and obese General Appearance ED: well developed Nutritional Appearance: obese HEENT Nose: external nose normal External Ear: external ears normal Mouth ED: Yes oral and palatal mucosa normal and Yes moist mucous membranes normal Mouth: oral and palatal mucosa normal Teeth and Gingiva: poor dentition and other Other Details: There is granulomatous tissue of the left first molar area from what appears to be a recent extraction. This is the area of his pain however there is no surrounding swelling or abscess. Throat: posterior oropharynx normal and uvula midline Eyes PERRL and EOMs intact bilaterally Neck supple Resp normal respiratory effort Cardio regular rate and regular rhythm Neuro oriented x3 and CN's II-XII intact bilaterally Sensorium / Orientation: alert Psych mental status grossly normal Mood & Affect: anxious Skin Skin Narrative: Diaphoretic MDM MDM MDM Narrative Medical decision making narrative: Patient is evaluated for worsening dental pain in association with removal of tooth yesterday. Patient not having any signs of abscess or infection. He is quite uncomfortable and consequently tachycardic, tachypneic and hypertensive. He is not febrile. I suspect his vital sign abnormalities are all secondary to pain. Ice does seem to help the area. There does not appear to be any exposed nerve root. Patient given dental block, inferior alveolar, with significant improvement of his symptoms. Dry socket paste applied to the area. [place] report is checked and patient does not have any active prescriptions. Is given a short course of Percocet for pain control. He has a follow-up appointment with his dentist tomorrow. We will continue to alternate ibuprofen as well. Counseled on return precautions. Patient has no airway compromise. Otherwise well-appearing. Discharge Plan Triage Chief Complaint: Dental ED Provider: Olamide Brownlee Dx/Rx/DC Orders Clinical Impression: Pain, dental, Status post tooth extraction Instructions: ED Dental Pain Prescriptions: New oxycodone-acetaminophen [Endocet] 5-325 mg tablet 1 tab PO Q6H PRN (Reason: pain) 2 Days Qty: 10 RF: 0 No Action insulin lispro 100 UNIT/ML insulin pen 35 unit subcut TIDAC Qty: 1 RF: 0 insulin glargine 100 UNITS/ML insulin pen 50 units subcut DAILY Qty: 1 RF: 0 oxycodone-acetaminophen 1 EACH tablet 1 ea PO 4X/DAY PRN PRN (Reason: pain) Qty: 6 RF: 0 naproxen 500 MG tablet 500 mg PO BID PRN Qty: 20 RF: 0 amoxicillin 500 MG tablet 500 mg PO TID Qty: 30 RF: 0 ondansetron 4 MG tablet 4 mg PO Q6H PRN PRN (Reason: Nausea) Qty: 10 RF: 0 oxycodone-acetaminophen [Endocet] 5-325 mg tablet 1 tab PO Q6H PRN (Reason: pain) 3 Days Qty: 12 RF: 0 clindamycin HCl 150 mg capsule 450 mg PO 4X/DAY 10 Days Qty: 120 RF: 0 [facility] Referrals: Bijal Mckeon [NON-STAFF] - [facility] - Disposition Disposition: Home, Self Care
[2021-05-27 19:39] VITALS: BP 187/100
[2021-05-27] MEDS: Lidocaine 2% /Epi 1:100 (20ml) 20 ML VIAL 10 ML INFILT (19:39)
== END 2021-05-27 19:40 | disposition home or self-care (01) ==
PROVIDERS: Emergency Provider Emergency Medicine
DX: K08.89 Other specified disorders of teeth and supporting structures (principal); E66.9 Obesity, unspecified; E11.9 Type 2 diabetes mellitus without complications; Z79.4 Long term (current) use of insulin; Z79.899 Other long term (current) drug therapy
CPT/HCPCS: 64999; 99282

== ENCOUNTER 2021-06-01 19:57 | Emergency (ER) | payer OTHER, MEDICAID, SELFPAY ==
[2021-06-01 19:58] VITALS: BP 173/129; PULSE 125; RESP 20; TEMP 36.9; O2SAT 94; BMI 54.6
--- NOTE | 2021-06-01 20:08 | EX.ED.DYSGE1 ---
HPI History of Present Illness Chief Complaint: Dental Detail of Chief Complaint: Sore on side of tongue Informant: patient Onset/Context/Timing Onset: Today Current Severity: Moderate Maximum Severity: Moderate Narrative Narrative: Patient reports waking this morning with a sore on the side of his tongue. He denies biting his tongue or any injury. He did recently have a tooth extracted on the left side of his mouth. PFSH [facility] Medical History Diabetes Home Medications insulin glargine 50 units SUBCUT DAILY #1 pen 09/27/19 [Rx Last Taken Unknown] insulin lispro 35 unit SUBCUT TIDAC #1 insuln.pen 09/27/19 [Rx Last Taken Unknown] acyclovir 400 mg PO TID #30 tab 06/01/21 [Rx Last Taken Unknown] hydrocodone-acetaminophen 1 tab PO Q6H PRN 3 Days #10 tab 06/01/21 [Rx Last Taken Unknown] metformin 500 mg PO TID 06/01/21 [History Last Taken Unknown] Allergy/AdvReac Type Severity Reaction Status Date / Time Fish Containing Products Allergy Swelling Verified 05/15/21 19:53 Social History Smoking Status: Never smoker ROS ROS ED Constitutional Constitutional ED: Denies chills or fever(s) Eyes Eyes: Denies change in vision ENT ENT ED: Reports other Details: Sore on right lateral tongue ; Denies sore throat Cardiovascular Cardiovascular: Denies chest pain Respiratory/Chest Respiratory/Chest: Denies cough or dyspnea Gastrointestinal Gastrointestinal: Denies abdominal pain, diarrhea, nausea or vomiting Musculoskeletal Musculoskeletal: Denies back pain Integumentary Denies rash Neurologic Neurologic: Denies headache(s) or weakness Psychiatric Psychiatric: Denies anxiety or depression Allergic/Immunologic Allergic/Immunologic ED: Denies urticaria EXAM Physical Exam Const Vital Signs: 06/01/21 19:58 Temperature 98.5 F Temperature Source Temporal Pulse Rate 125 H Respiratory Rate 20 H Blood Pressure 173/129 H Blood Pressure Mean 143 Pulse Ox 94 Oxygen Delivery Method Room Air Positive well nourished and well developed General Appearance ED: well developed HEENT Reports normocephalic and head/scalp atraumatic HEENT Narrative: Patient is a circumferential sore on the right lateral surface of the tongue. No blisters noted. Eyes PERRL and EOMs intact bilaterally Neck supple Chest Wall inspection of chest normal and palpation of chest normal Resp normal respiratory effort and clear to auscultation bilaterally Cardio regular rate and regular rhythm GI normal to inspection, nondistended, normoactive bowel sounds Palpation: soft Extremity normal to inspection Neuro oriented x3 and no sensory deficits noted Sensorium / Orientation: alert Motor Exam: strength 5/5 throughout Psych mental status grossly normal MDM MDM MDM Narrative Medical decision making narrative: Patient be treated with acyclovir for potential herpes infection. Wound does not appear to be bacterial infection. Treatment and Re-Evaluation Comments:: Acyclovir along with analgesics prescribed and sent to [facility] for the patient. Patient advised to monitor his sugars closely. He states that they have been within normal range today. Discharge Plan Triage Chief Complaint: Dental ED Provider: Jesusita Law Dx/Rx/DC Orders Clinical Impression: Oral herpes simplex infection Instructions: Understanding Cold Sores Prescriptions: New acyclovir 400 mg tablet 400 mg PO TID Qty: 30 RF: 0 hydrocodone-acetaminophen 5-325 mg tablet 1 tab PO Q6H PRN (Reason: pain) 3 Days Qty: 10 RF: 0 No Action insulin lispro 100 UNIT/ML insulin pen 35 unit subcut TIDAC Qty: 1 RF: 0 insulin glargine 100 UNITS/ML insulin pen 50 units subcut DAILY Qty: 1 RF: 0 metformin 500 mg Tablet 500 mg PO TID RF: 0 [facility] [facility] [facility] [place] - 1 Week if not improving Disposition Disposition: Home, Self Care
[2021-06-01] MEDS: Acyclovir 200 MG Capsule 400 MG PO (20:18)
== END 2021-06-01 20:19 | disposition home or self-care (01) ==
PROVIDERS: Emergency Provider Emergency Medicine
DX: B00.2 Herpesviral gingivostomatitis and pharyngotonsillitis (principal); E11.9 Type 2 diabetes mellitus without complications; Z79.4 Long term (current) use of insulin
CPT/HCPCS: 99283